=== PATIENT | male | born 1980 | race Caucasian/White ===

== ENCOUNTER → 2017-07-13 | Day surgery (SDC) | payer OTHER ==
--- NOTE | 2017-07-12 14:57 | History and Physical ---
History & Physical Date Jul 12, 2017. Chief Complaint Left neck mass History of Present Illness The patient is a 37 year old male with complaints of left neck swelling that is increasing in size, consistent with a cystic lesion, unable to get needle biopsy. Additional History Hepatic Disease: No Endocrine Disorder: No Kidney Disease: No Hypertension: No Heart Disease: No Bleeding Tendencies: No Infectious Diseases: No Physical Examination Skin: warm/dry, no rash Eyes: normal inspection, EOMI, sclerae normal ENT: normal ENT inspection, pharynx normal Head: normocephalic, atraumatic Neck: + pertinent finding (5 cm soft cystic feeling left neck mass at the angle of the mandible) Respiratory/Chest: lungs clear, normal breath sounds, no respiratory distress Cardiovascular: regular rate, rhythm, no edema, no murmur Abdomen / GI: normal bowel sounds, non tender Back: normal inspection Extremities: normal inspection, normal range of motion Neurologic/Psych: no motor/sensory deficits, alert, normal reflexes, oriented x 3 Diagnosis Branchial cleft cyst left neck Plan of Treatment Excision branchial cleft cyst left neck with frozen section
[~2017-07-13] VITALS: Ht 170.2 cm; Wt 85.0 kg
[~2017-07-13] MED LIST: ATROPINE SULFATE 0.1 MG/ML 5ML SYR IV PRN; BACITRACIN OINT 15 GM TUBE ONE; BENZ-89 PO; BUSP-8 PO; CEFAZOLIN 2000MG IV PUSH 15 ML IV SCH; DEXAMETHASONE SOD INJ 4 MG/ML VIAL ONE; DIPH25CA5 PO; EpHEDrine SULFATE INJ 50 MG/ML AMP IV PRN; FENTANYL CITRATE INJ 50 MCG/1 ML 2 ML VIAL ONE; FLUMAZENIL 0.1 MG/1 ML 10 ML VIAL IV PRN; GDN/80 PO; GLYCOPYRROLATE INJ 0.2 MG/ML VIAL ONE; HYDR-5688 PO; HYDROCODONE/ACETAMIN 5/325MG TAB PO PRN; HYDROmorphone INJ 1 MG/ML SYR IV PRN; LABETALOL HCL IV 5 MG/ML 20ML IV PRN; LACTATED RINGER'S 1000ML 1,000 ML IV SCH; LEVO50TA6 PO; LIDO 2%/EPINEPHRINE 1:100000 20 ML VIAL INFIL ONE; LIDOCAINE HCL 2% 2 ML VIAL (20MG/ML) ONE; MIDAZOLAM HCL 1 MG/ML 2ML VIAL ONE; MIRT30TA2 PO; MoRPHine SULFATE 4 MG/ML 1 ML CARP\\VIAL IV PRN; NALOXONE HCL 0.4 MG/1 ML VIAL/CARP IV PRN; NAPR-1169 PO; NEOSTIGMINE METHYLSULFATE 5 MG/5 ML SYR ONE; ONDANSETRON INJ 2 MG/ML 2 ML VIAL IV PRN; ONDANSETRON INJ 2 MG/ML 2 ML VIAL ONE; PROMETHAZINE HCL INJ 12.5 MG in SODIUM CHLORIDE 0.9% 50ML 50 ML IV PRN; SERT-234 PO; SODIUM CHLORIDE 0.9% 1000ML 1,000 ML IV SCH
[2017-07-13 10:13] VITALS: BP 142/85; PULSE 69; TEMP 37.2; O2SAT 96; Ht 170.2 cm; Wt 85.0 kg
--- NOTE | 2017-07-13 12:02 | History & Physical Bridge Note ---
H&P Re-Evaluation Bridge Note: I have examined the patient, reviewed the History & Physical and in the interval since the performance of the History & Physical I have noted the following changes of clinical significance: No changes noted
--- NOTE | 2017-07-13 13:31 | [facility] Post Operative Brief Note ---
Immediate Operative Summary Operative Date Jul 13, 2017. Pre-Operative Diagnosis Brachial cleft cyst left neck Post-Operative Diagnosis same as preop Procedure(s) Performed Excision Brachial Cleft Cyst, Left Neck Surgeon Dr. Harley Prepress Operator Surgeon(s) none Estimated Blood Loss 20 ml Findings Consistent with Post-Op Diagnosis Specimens Frozen #1- Left brachial cleft cyst, sent from room at [address] Anesthesia Type General Complication(s) none Disposition Accompanied Pt To Recovery: yes Disposition: Recovery Room / PACU
--- NOTE | 2017-07-13 13:43 | [facility] Operative Report ---
Operative Report Operative Date Jul 13, 2017. Pre-Operative Diagnosis Brachial cleft cyst left neck Post-Operative Diagnosis same as preop Procedure(s) Performed Excision Brachial Cleft Cyst, Left Neck Surgeon Dr. Harley Poolroom/Poolhall Manager Surgeon(s) none Estimated Blood Loss 20 ml Findings Large cyst Specimens Frozen #1- Left brachial cleft cyst, sent from room at [address] Anesthesia Type General Complication(s) none Disposition yes Recovery Room / PACU Indications 37-year-old male with enlarging soft mass left neck of 5 cm Description of Procedure The patient was brought to the operating room and placed in the supine position and prepped with ChloraPrep for excision and draped in the usual sterile manner. The incision site was marked and injected with 2% Xylocaine with 1 100, 000 strength epinephrine. Incision was made using #10 blade carried down through the skin and subcutaneous layer and then through the platysma layer with the 10 blade. Hemostasis was controlled using the bipolar cautery and the needlepoint Bovie. Sharp dissection was performed around the mass using the Metzenbaum scissors dissecting around the soft mass controlling bleeders with the bipolar cautery and preserving the posterior facial vein and preserving the marginal mandibular nerve and preserving the hypoglossal nerve deep to mass. The entire cyst was sent for frozen section which showed it to be consistent with branchial cleft cyst with no sign of carcinoma. The incision was closed with interrupted 2-0 Vicryl sutures on the platysma layer, interrupted 2-0 Vicryl sutures on the subcutaneous layer, and interrupted 5-0 nylon sutures on the skin. Small Garrett drain was placed in the depth of the wound and sewn in place with the 5-0 nylon suture. The patient her procedure well was taken recovery area in satisfactory condition. I attest to the content of the Intraoperative Record and any orders documented therein. Any exceptions are noted below.
--- NOTE | 2017-07-13 13:48 | Discharge Instructions ---
Discharge Instructions Date of Service Jul 13, 2017. Admission Reason for Admission: Head -Localized Swelling, Mass And Lump Discharge Discharge Diagnosis / Problem: branchial cleft cyst Discharge Goals Goal(s): Therapeutic intervention Activity Recommendations Activity Limitations: per Instructions/Follow-up section . Instructions / Follow-Up Instructions / Follow-Up ACTIVITY: Most patients are able to return to a full-time work schedule in 1 week; however this may vary according to your job. It may take longer to return to heavy physical or other demanding work, or shorter if you are feeling well. Do NOT drive a car until you are able to turn the neck side to side, which may take 1-[address] you are taking pain medicines. DIET: You may have temporary throat discomfort or difficulty swallowing. This is due to the surgery around your larynx (voice box) and esophagus (swallowing tube). These symptoms will gradually improve over the course of several weeks. Drink and eat foods that can be swallowed easily, e.g. juice, soup, gelatin, applesauce, scrambled eggs or mashed potatoes. You may be able to return to your usual diet in a couple of days. INCISION CARE: You may shower 24 hours after surgery but please do not swim or soak in a tub for at least 2 weeks. After you are done showering, just pat your incision dry. If it is draining clear fluid, you can cover it with a dry dressing (such as gauze). Do NOT scrub with soap or washcloth for the first 10 days. Mild swelling at the incision site will go away in 4-6 weeks. The pink line will slowly fade to white during the next 6-12 months. Use a sunscreen (SPF#30 or higher) or wear a scarf for protection if in the sun for the first 6 months to a year as the sun can darken your scar. You may begin to use a hypoallergenic moisturizing cream (no vitamin E, Mederma , or other scar creams) along the incision after 2 weeks. COMMON PROBLEMS: Numbness of the skin under the chin or above the incision is normal and should go away in a few weeks. You may feel a lump or pressure in your throat sensation when swallowing for a few days. Your incision may feel itchy while it heals. Avoid rubbing or scratching if possible. You may feel neck stiffness, tightness or a pulling feeling. Some people prefer to sleep with an extra pillow for the first few days after the surgery, this helps keep swelling around your incision to a minimum. Your voice may be hoarse or weak. Pitch or tone may change. You may have difficulty singing. This usually goes back to normal over 6 weeks to 6 months. After surgery, you may notice a change in your mood, emotional ups and downs, depression, irritability or fatigue and weakness. These changes will get better as time passes. You do not need to be at bed rest, being active is normally well tolerated within reason. CALL YOUR DOCTOR IF: For any non-urgent questions, call Dr. Mcdonald office [phone] or the nursing unit where you were a patient. Call Dr. Harley [phone] or go to the Emergency Room if you have fever ( temperature greater than 100.5), chills, lightheadedness, shortness of breath, difficulty breathing, nausea, vomiting, numbness or tingling in your fingers, hands, or mouth, muscle spasms, or if you notice signs of wound infection ( redness, tenderness, or drainage from the incision). Please also call or go to the Emergency Room if you have any other urgent concerns. FOLLOW UP VISIT: Please place him in [facility] until Sunday, please remove drain on Sunday, please remove sutures in 10 days. Frozen section showed benign branchial cleft cyst, if permanent section confirms , he will NOT need to see me again unless there is a recurrence or complication. Thank you. Current Hospital Diet Patient's current hospital diet: Discharge Diet Recommended Diet: Regular Diet Procedures Procedures Performed: Excision Brachial Cleft Cyst, Left Neck Pending Studies Studies pending at discharge: yes List of pending studies: pathology Medical Emergencies . Who to Call and When: Medical Emergencies: If at any time you feel your situation is an emergency, please call 911 immediately. . Non-Emergent Contact Non-Emergency issues call your: Primary Care Provider . "Provider Documentation" section prepared by Lizz Harley. . VTE Core Measure Inpt VTE Proph given/why not?: SCD's [place] Drug Monitoring Program Search Results: no issues identified
--- NOTE | 2017-07-13 14:19 | Anesthesiology Progress Note ---
Anesthesia Post Op Note Date & Time Jul 13, 2017 at 14:18 Vital Signs Pain Intensity: 0 Vital Signs Past 12 Hours Date Time Temp Pulse Resp B/P (MAP) Pulse Ox O2 Delivery O2 Flow Rate FiO2 07/13/17 14:07 36.2 62 21 113/79 (84) 96 Room Air 07/13/17 14:06 130/79 07/13/17 14:03 75 15 94 07/13/17 14:03 71 15 07/13/17 14:01 122/77 07/13/17 13:58 66 17 07/13/17 13:58 65 17 97 07/13/17 13:57 64 23 93 07/13/17 13:57 64 23 07/13/17 13:56 126/82 07/13/17 13:55 69 22 94 07/13/17 13:55 71 22 07/13/17 13:51 130/79 07/13/17 13:50 72 17 07/13/17 13:50 72 17 98 07/13/17 13:46 125/80 07/13/17 13:45 69 26 07/13/17 13:45 69 26 99 07/13/17 13:41 36.0 70 16 121/76 (89) 99 Oxymask 10 07/13/17 13:41 121/76 07/13/17 10:13 37.2 69 18 142/85 (104) 96 Room Air Notes Mental Status: alert / awake / arousable, participated in evaluation Pt Amnestic to Procedure: Yes Nausea / Vomiting: adequately controlled Pain: adequately controlled Airway Patency, RR, SpO2: stable & adequate BP & HR: stable & adequate Hydration State: stable & adequate Anesthetic Complications: no major complications apparent
[2017-07-13 14:30] VITALS: BP 119/75; PULSE 62; TEMP 36.9; O2SAT 94
[2017-07-13 15:00] VITALS: BP 120/77; PULSE 74; O2SAT 95
[2017-07-13 15:20] VITALS: BP 122/72; PULSE 76; TEMP 36.7; O2SAT 96
== END | disposition home or self-care (01) ==
LOC: C.ACU 09:35
PROVIDERS: ATTEND Otolaryngology
DX: Q18.0 Sinus, fistula and cyst of branchial cleft (principal); E03.9 Hypothyroidism, unspecified